=== PATIENT | male | born 1965 | race African-American/Black ===

== ENCOUNTER 2021-12-08 15:44 | Outpatient (CLI) | payer OTHER | END 2021-12-08 15:45 | disposition home or self-care (01) | LOC: NAV RAD 15:44 | PROVIDERS: ATTEND Nurse Practitioner Family | DX: M54.50 Low back pain, unspecified (principal); M47.816 Spondylosis without myelopathy or radiculopathy, lumbar region | CPT/HCPCS: 72100 ==